=== PATIENT | female | born 1955 | race Hispanic/Latino ===

== ENCOUNTER 2022-12-17 11:23 | Outpatient (CLI) | payer MEDICARE ==
[2022-12-17 13:13] LABS: #Basophils 0.1 10x3/uL (0.0-0.2); #Eosinphils 0.2 10x3/uL (0.0-0.5); #Monocytes 0.5 10x3/uL (0.0-1.1); #Neutrophils 2.7 10x3/uL (1.5-8.4); %Basophils 0.8 % (0.0-2.0); %Eosinophils 3.3 % (0.0-6.0); %Lymphocytes 43.2 % (18.0-47.0); %Monocytes 7.9 % (0.0-10.0); %Neutrophils 44.5 % (40.0-75.0); Hemoglobin 13.4 g/dL (12.0-15.5); Mean Corpuscular HGB CONC 31.8 g/dL (32.0-36.0); Mean Corpuscular Hemoglobin 28.5 pg (27.0-33.0); Mean Corpuscular Volume 89.4 fl (81.6-98.3); Mean Platelet Volume 8.7 fl (7.4-10.4); Platelet Count 328 10x3/uL (150-450); RBC Distribution Width 13.4 % (11.5-14.5); Red Blood Cell (RBC) Count 4.71 10x6/uL (3.90-5.03); White Blood Cell (WBC) Count 6.1 10x3/uL (3.5-10.5)
== END 2022-12-17 11:24 | disposition home or self-care (01) ==
LOC: LABBT 11:23
PROVIDERS: ATTEND Orthopaedic Surgery Hand Surgery
DX: Z01.818 Encounter for other preprocedural examination (principal); G56.02 Carpal tunnel syndrome, left upper limb; M72.0 Palmar fascial fibromatosis [Dupuytren]
CPT/HCPCS: 85025; 93005; 93010

== ENCOUNTER 2022-12-19 06:52 | Inpatient (IN) | payer MEDICARE ==
[2022-12-19] MEDS ORDERED: Vancomycin 1 GM/200 ML (FROZEN) BAG ONE (08:44)
[2022-12-19] MEDS ORDERED: Promethazine HCl 25 MG/ML VIAL ONE (08:48)
[2022-12-19] MEDS ORDERED: ePHEDrine 50 MG/ML VIAL ONE (08:55)
[2022-12-19] MEDS ORDERED: Ondansetron PF 4 MG/2 ML Vial ONE ×2 (08:55)
[2022-12-19] MEDS ORDERED: Lidocaine 1% PF 5 ML VIAL ONE (08:55)
[2022-12-19] MEDS ORDERED: Dexamethasone 20 MG/5 ML VIAL ONE (08:55)
[2022-12-19] MEDS ORDERED: Rocuronium Bromide 10 MG/ML (10ML VIAL) ONE (08:55)
[2022-12-19] MEDS ORDERED: Glycopyrrolate 0.2 MG/ML 5 ML SYRINGE ONE (08:55)
[2022-12-19] MEDS ORDERED: PHENYLEPHRINE-NS 100 MCG/ML 10 ML SYRINGE ONE (08:55)
[2022-12-19] MEDS ORDERED: Ketorolac Tromethamine 30 MG/ML VIAL ONE (08:55)
[2022-12-19] MEDS ORDERED: NEOSTIGMINE 3 MG/3 ML SYR 3 MG/3 ML SYRINGE ONE (08:55)
[2022-12-19] MEDS ORDERED: PROPOFOL 200 MG/20 ML VIAL ONE (08:55)
[2022-12-19] MEDS ORDERED: diphenhydrAMINE 50 MG/ML VIAL ONE (08:55)
[2022-12-19] MEDS ORDERED: Bupivacaine PF 0.5% 30 ML VIAL ONE (09:23)
[2022-12-19] MEDS ORDERED: Betamet Acet/Betamet Na Ph 30 MG/5 ML VIAL ONE (09:23)
[2022-12-19] MEDS ORDERED: Bacitracin Zinc Ointment 30 gm TUBE ONE (09:23)
[2022-12-19] MEDS ORDERED: Hetastarch 6% 500 ML 500 ML ONE ×2 (10:38→16:18)
[2022-12-19] MEDS ORDERED: Papaverine 60 MG/2 ML VIAL ONE ×2 (11:37→13:16)
[2022-12-19] MEDS ORDERED: fentaNYL PF 100 MCG/2 ML SYRINGE ONE ×2 (12:50→16:17)
[2022-12-19] MEDS ORDERED: Heparin 25,000 units/D5W 500 ML ONE (13:06)
[2022-12-19] MEDS ORDERED: Heparin 10,000 UNITS/ 10 ML VIAL ONE (13:06)
[2022-12-19] MEDS ORDERED: HYDROmorphone 2 MG/ML VIAL SLOW IVP PRN (17:51)
[2022-12-19] MEDS ORDERED: Promethazine HCl 25 MG/ML VIAL IM PRN (17:51)
[2022-12-19] MEDS ORDERED: Morphine 4 MG/ML VIAL SLOW IVP PRN (18:02)
[2022-12-19] MEDS ORDERED: Fentanyl 100 MCG/2 ML VIAL SLOW IVP PRN (18:02)
[2022-12-19] MEDS ORDERED: TETANUS, DIPHTHERIA TOX,ADULT (TDVAX) 0.5 ML VIAL IM ONE (18:02)
[2022-12-19] MEDS ORDERED: HYDROcodone/Acetaminophen 5/325 mg Tablet PO PRN (18:02)
[2022-12-19] MEDS ORDERED: Communication Order-Pharmacy FS SCH (18:15)
[2022-12-19 18:16] LABS: #Monocytes 0.1 thou/uL (0.11-0.59); #Neutrophils 3.1 thou/uL (1.40-6.50); %Basophils 0.2 % (0.0-1.0); %Eosinophils 0.2 % (0.0-10.0); %Lymphocytes 23.9 % (21.0-51.0); %Monocytes 1.2 % (0.0-10.0); %Neutrophils 74.5 % (42.0-75.0); Hemoglobin 10.6 g/dL (12.0-16.0); Mean Corpuscular HGB CONC 33.6 g/dL (32.0-36.0); Mean Corpuscular Hemoglobin 30.3 pg (27.0-31.0); Mean Corpuscular Volume 90.3 fl (78.0-98.0); Mean Platelet Volume 6.5 fL (7.4-10.4); Platelet Count 281 10x3/uL (130-400); RBC Distribution Width 12.5 % (11.5-14.5); Red Blood Cell (RBC) Count 3.51 mill/uL (4.20-5.40); White Blood Cell (WBC) Count 4.1 10x3/uL (4.8-10.8)
[2022-12-19] MEDS ORDERED: Heparin 25,000 units/D5W 500 ML IV SCH (18:45)
[2022-12-19] MEDS: Aspirin 81 mg Enteric Coated Tablet PO SCH (20:51)
[2022-12-19 21:46] LABS: #Lymphocytes 1.1 thou/uL (1.20-3.40); #Monocytes 0.1 thou/uL (0.11-0.59); #Neutrophils 7.2 thou/uL (1.40-6.50); %Basophils 0.1 % (0.0-1.0); %Eosinophils 0.1 % (0.0-10.0); %Lymphocytes 13.2 % (21.0-51.0); %Monocytes 1.2 % (0.0-10.0); %Neutrophils 85.5 % (42.0-75.0); Hemoglobin 8.6 g/dL (12.0-16.0); Mean Corpuscular HGB CONC 33.8 g/dL (32.0-36.0); Mean Corpuscular Hemoglobin 30.7 pg (27.0-31.0); Mean Corpuscular Volume 90.8 fl (78.0-98.0); Mean Platelet Volume 6.7 fL (7.4-10.4); Platelet Count 258 10x3/uL (130-400); RBC Distribution Width 12.5 % (11.5-14.5); Red Blood Cell (RBC) Count 2.79 mill/uL (4.20-5.40); White Blood Cell (WBC) Count 8.4 10x3/uL (4.8-10.8)
[2022-12-20 00:02] LABS: Anion Gap 17 mmol/L (10-20); BUN (Urea Nitrogen) 17 mg/dL (9.8-20.1); CK (CPK) 179 U/L (29-168); Calc. Creatinine Clearance 85 mL/min (70-130); Calcium 7.2 mg/dL (7.8-10.44); Carbon Dioxide 16 mmol/L (23-31); Chloride 110 mmol/L (98-107); Estimated GFR 70; Glucose 142 mg/dL (80-115); Potassium 4.5 mmol/L (3.5-5.1); Sodium 138 mmol/L (136-145)
[2022-12-20 00:32] LABS: Troponin I Less than 0.010 ng/mL (< 0.028)
[2022-12-20] MEDS: Acetaminophen/Codeine 30-300mg Tablet PO PRN ×5 (00:40→20:11)
[2022-12-20] MEDS ORDERED: Sodium Chloride 0.9% 1,000 ML IV SCH (01:00)
[2022-12-20 01:18] VITALS: BMI 36.3
[2022-12-20 04:30] LABS: SARS-CoV-2 NAA Rapid Test Not Detected (NotDetected)
[2022-12-20 06:02] LABS: Bilirubin Negative (Negative); Blood, Urine 3+ (Negative); CAUTI Indications for Culture Alt mental st,lethar; Clarity Turbid (Clear); Glucose, Urine (Dipstick) Normal (Negative); Ketone, Urine Negative (Negative); Leukocyte Negative Leu/uL (Negative); Nitrite Negative (Negative); Protein, Urine (Dipstick) Negative (Neg-Trace); RBC/HPF 0-3 HPF (0-3); Specific Gravity, Urine 1.015 (1.002-1.036); Urobilinogen Normal mg/dL (Less than 2); WBC/HPF 0-3 HPF (0-3); pH, Urine 5.5 (5.0-9.0)
[2022-12-20 06:03] LABS: Bacteria/HPF 1+ HPF (None Seen); Urine Culture Reflex No No
[2022-12-20 06:35] LABS: #Lymphocytes 1.6 thou/uL (1.20-3.40); #Monocytes 0.6 thou/uL (0.11-0.59); #Neutrophils 8.4 thou/uL (1.40-6.50); %Basophils 0.1 % (0.0-1.0); %Lymphocytes 15.1 % (21.0-51.0); %Monocytes 5.6 % (0.0-10.0); %Neutrophils 79.3 % (42.0-75.0); Hemoglobin 8.9 g/dL (12.0-16.0); Mean Corpuscular HGB CONC 34.7 g/dL (32.0-36.0); Mean Corpuscular Hemoglobin 31.5 pg (27.0-31.0); Mean Corpuscular Volume 90.6 fl (78.0-98.0); Mean Platelet Volume 6.4 fL (7.4-10.4); Platelet Count 221 10x3/uL (130-400); RBC Distribution Width 12.4 % (11.5-14.5); Red Blood Cell (RBC) Count 2.84 mill/uL (4.20-5.40); White Blood Cell (WBC) Count 10.6 10x3/uL (4.8-10.8)
[2022-12-20] MEDS: Hetastarch 6% 500 ML 500 ML IVPB SCH (08:13)
[2022-12-20] MEDS: Aspirin 81 mg Enteric Coated Tablet PO SCH (08:14)
[2022-12-20] MEDS: Sulfameth/Trimethoprim DS 800-160mg TAB PO SCH ×2 (08:20→20:11)
[2022-12-20] MEDS: traMADol HCl 50 MG TAB PO PRN ×2 (11:07→17:24)
[2022-12-20 15:14] LABS: #Basophils 0.1 thou/uL (0.0-0.2); #Lymphocytes 3.7 thou/uL (1.20-3.40); #Monocytes 0.7 thou/uL (0.11-0.59); #Neutrophils 8.1 thou/uL (1.40-6.50); %Basophils 0.6 % (0.0-1.0); %Eosinophils 0.1 % (0.0-10.0); %Lymphocytes 29.7 % (21.0-51.0); %Monocytes 5.4 % (0.0-10.0); %Neutrophils 64.3 % (42.0-75.0); Hemoglobin 8.9 g/dL (12.0-16.0); Mean Corpuscular HGB CONC 33.4 g/dL (32.0-36.0); Mean Corpuscular Hemoglobin 30.5 pg (27.0-31.0); Mean Corpuscular Volume 91.4 fl (78.0-98.0); Mean Platelet Volume 6.7 fL (7.4-10.4); Platelet Count 247 10x3/uL (130-400); RBC Distribution Width 12.8 % (11.5-14.5); Red Blood Cell (RBC) Count 2.91 mill/uL (4.20-5.40); White Blood Cell (WBC) Count 12.6 10x3/uL (4.8-10.8)
[2022-12-20] MEDS: Clindamycin/D5W 900 MG in Premix Bag 1 BAG IVPB SCH ×2 (15:44→22:48)
[2022-12-20] MEDS ORDERED: Clindamycin (PEDI) 900 MG in Syringe 0 ML IVPB SCH (18:00)
[2022-12-21] MEDS: Acetaminophen 325 MG TAB PO PRN ×4 (00:40→19:57)
[2022-12-21] MEDS: traMADol HCl 50 MG TAB PO PRN ×3 (03:10→21:42)
[2022-12-21] MEDS: Clindamycin/D5W 900 MG in Premix Bag 1 BAG IVPB SCH ×4 (03:11→21:42)
[2022-12-21] MEDS: Hetastarch 6% 500 ML 500 ML IVPB SCH (06:21)
[2022-12-21 06:25] LABS: #Basophils 0.1 thou/uL (0.0-0.2); #Eosinphils 0.1 thou/uL (0.0-0.7); #Monocytes 0.7 thou/uL (0.11-0.59); #Neutrophils 5.3 thou/uL (1.40-6.50); %Basophils 0.5 % (0.0-1.0); %Eosinophils 0.7 % (0.0-10.0); %Lymphocytes 39.7 % (21.0-51.0); %Monocytes 6.7 % (0.0-10.0); %Neutrophils 52.4 % (42.0-75.0); Hemoglobin 7.7 g/dL (12.0-16.0); Mean Corpuscular Hemoglobin 31.3 pg (27.0-31.0); Mean Platelet Volume 6.9 fL (7.4-10.4); Platelet Count 208 10x3/uL (130-400); Red Blood Cell (RBC) Count 2.46 mill/uL (4.20-5.40)
[2022-12-21] MEDS: Aspirin 81 mg Enteric Coated Tablet PO SCH (08:25)
[2022-12-21] MEDS: Sulfameth/Trimethoprim DS 800-160mg TAB PO SCH ×2 (08:25→19:55)
[2022-12-21] MEDS: Senokot S 8.6-50 MG TAB PO SCH ×2 (09:01→19:55)
[2022-12-21] MEDS: Ondansetron PF 4 MG/2 ML Vial SLOW IVP PRN ×2 (09:49→17:08)
[2022-12-21 10:03] LABS: #Eosinphils 0.1 thou/uL (0.0-0.7); #Lymphocytes 3.4 thou/uL (1.20-3.40); #Monocytes 0.6 thou/uL (0.11-0.59); #Neutrophils 4.8 thou/uL (1.40-6.50); %Basophils 0.4 % (0.0-1.0); %Eosinophils 1.7 % (0.0-10.0); %Lymphocytes 38.1 % (21.0-51.0); %Monocytes 6.9 % (0.0-10.0); Hemoglobin 7.7 g/dL (12.0-16.0); Mean Corpuscular Hemoglobin 30.1 pg (27.0-31.0); Mean Corpuscular Volume 91.4 fl (78.0-98.0); Mean Platelet Volume 7.1 fL (7.4-10.4); Platelet Count 219 10x3/uL (130-400); RBC Distribution Width 12.8 % (11.5-14.5); Red Blood Cell (RBC) Count 2.54 mill/uL (4.20-5.40)
[2022-12-21 11:31] LABS: #Basophils 0.1 thou/uL (0.0-0.2); #Eosinphils 0.2 thou/uL (0.0-0.7); #Lymphocytes 2.7 thou/uL (1.20-3.40); #Monocytes 0.5 thou/uL (0.11-0.59); #Neutrophils 4.6 thou/uL (1.40-6.50); %Basophils 0.7 % (0.0-1.0); %Eosinophils 2.1 % (0.0-10.0); %Lymphocytes 33.5 % (21.0-51.0); %Monocytes 6.4 % (0.0-10.0); %Neutrophils 57.2 % (42.0-75.0); Hemoglobin 7.6 g/dL (12.0-16.0); Mean Corpuscular HGB CONC 34.1 g/dL (32.0-36.0); Mean Corpuscular Hemoglobin 31.1 pg (27.0-31.0); Mean Corpuscular Volume 91.2 fl (78.0-98.0); Mean Platelet Volume 7.1 fL (7.4-10.4); Platelet Count 192 10x3/uL (130-400); RBC Distribution Width 12.8 % (11.5-14.5); Red Blood Cell (RBC) Count 2.44 mill/uL (4.20-5.40); White Blood Cell (WBC) Count 8.1 10x3/uL (4.8-10.8)
[2022-12-21 18:30] LABS: #Eosinphils 0.2 thou/uL (0.0-0.7); #Lymphocytes 2.7 thou/uL (1.20-3.40); #Monocytes 0.6 thou/uL (0.11-0.59); #Neutrophils 4.2 thou/uL (1.40-6.50); %Basophils 0.6 % (0.0-1.0); %Eosinophils 2.8 % (0.0-10.0); %Lymphocytes 34.7 % (21.0-51.0); %Monocytes 8.1 % (0.0-10.0); %Neutrophils 53.8 % (42.0-75.0); Hemoglobin 9.2 g/dL (12.0-16.0); Mean Corpuscular HGB CONC 34.3 g/dL (32.0-36.0); Mean Corpuscular Hemoglobin 31.8 pg (27.0-31.0); Mean Corpuscular Volume 92.7 fl (78.0-98.0); Mean Platelet Volume 7.3 fL (7.4-10.4); Platelet Count 180 10x3/uL (130-400); RBC Distribution Width 12.9 % (11.5-14.5); Red Blood Cell (RBC) Count 2.88 mill/uL (4.20-5.40); White Blood Cell (WBC) Count 7.9 10x3/uL (4.8-10.8)
[2022-12-22] MEDS: Acetaminophen 325 MG TAB PO PRN ×2 (01:36→08:53)
[2022-12-22] MEDS: Clindamycin/D5W 900 MG in Premix Bag 1 BAG IVPB SCH ×3 (03:34→19:24)
[2022-12-22] MEDS: traMADol HCl 50 MG TAB PO PRN ×2 (05:42→11:19)
[2022-12-22] MEDS: Aspirin 81 mg Enteric Coated Tablet PO SCH (08:50)
[2022-12-22] MEDS: Sulfameth/Trimethoprim DS 800-160mg TAB PO SCH (08:50)
[2022-12-22] MEDS ORDERED: Electrolyte Replacement Protocol 1 EACH FS SCH (09:15)
[2022-12-22] MEDS: Senokot S 8.6-50 MG TAB PO SCH ×2 (09:17→14:04)
[2022-12-22] MEDS ORDERED: Electrolyte Replacement Protocol FS PRN (10:00)
[2022-12-22 10:30] LABS: #Basophils 0.1 thou/uL (0.0-0.2); #Eosinphils 0.2 thou/uL (0.0-0.7); #Lymphocytes 2.1 thou/uL (1.20-3.40); #Monocytes 0.4 thou/uL (0.11-0.59); #Neutrophils 3.7 thou/uL (1.40-6.50); %Basophils 0.8 % (0.0-1.0); %Lymphocytes 32.2 % (21.0-51.0); %Monocytes 6.7 % (0.0-10.0); %Neutrophils 57.3 % (42.0-75.0); Hemoglobin 9.3 g/dL (12.0-16.0); Mean Corpuscular HGB CONC 33.3 g/dL (32.0-36.0); Mean Corpuscular Hemoglobin 30.6 pg (27.0-31.0); Mean Corpuscular Volume 91.9 fl (78.0-98.0); Mean Platelet Volume 6.8 fL (7.4-10.4); Platelet Count 226 10x3/uL (130-400); RBC Distribution Width 12.9 % (11.5-14.5); Red Blood Cell (RBC) Count 3.05 mill/uL (4.20-5.40); White Blood Cell (WBC) Count 6.4 10x3/uL (4.8-10.8)
[2022-12-22 10:56] LABS: Anion Gap 11 mmol/L (10-20); BUN (Urea Nitrogen) 9 mg/dL (9.8-20.1); Calc. Creatinine Clearance 100 mL/min (70-130); Calcium 7.5 mg/dL (7.8-10.44); Carbon Dioxide 23 mmol/L (23-31); Chloride 106 mmol/L (98-107); Estimated GFR 77; Glucose 114 mg/dL (80-115); Magnesium 1.5 mg/dL (1.6-2.6); Potassium 3.6 mmol/L (3.5-5.1); Sodium 136 mmol/L (136-145)
[2022-12-22] MEDS ORDERED: Magnesium 2 GM/50 ML(in water) 2 GM in Premix Bag 1 BAG IVPB SCH (13:00)
[2022-12-22 13:11] VITALS: TEMP 98.3
[2022-12-22] MEDS ORDERED: TETANUS, DIPHTHERIA TOX,ADULT (TDVAX) 0.5 ML VIAL IM ONE (14:05)
[2022-12-22] MEDS ORDERED: Milk Of Magnesia 30 ML UDCUP PO PRN (14:05)
[2022-12-22] MEDS ORDERED: Bisacodyl 10 MG SUPP PR PRN (14:07)
[2022-12-22] MEDS ORDERED: Communication Order-Pharmacy FS SCH (14:15)
[2022-12-22] MEDS: Ondansetron PF 4 MG/2 ML Vial SLOW IVP PRN (14:53)
[2022-12-22 17:47] VITALS: BP 149/77
[2022-12-22] MEDS ORDERED: Atorvastatin Calcium 10 MG TAB PO SCH (21:00)
[2022-12-22] MEDS ORDERED: Aspirin 81 mg Enteric Coated Tablet PO SCH (21:00)
== END 2022-12-22 19:26 | disposition home or self-care (01) | DRG 41 ==
LOC: SDC 06:52 → SURG A 18:02
PROVIDERS: ADMIT Orthopaedic Surgery Hand Surgery; ATTEND Orthopaedic Surgery Hand Surgery
PROC: 01N50ZZ Release Median Nerve, Open Approach (ICD-10-PCS; principal; 2022-12-19)
PROC: 0JNK0ZZ Release Left Hand Subcutaneous Tissue and Fascia, Open Approach (ICD-10-PCS; 2022-12-19)
PROC: 30233N1 Transfusion of Nonautologous Red Blood Cells into Peripheral Vein, Percutaneous Approach (ICD-10-PCS; 2022-12-20)
DX: G56.02 Carpal tunnel syndrome, left upper limb (principal); F33.9 Major depressive disorder, recurrent, unspecified; G93.40 Encephalopathy, unspecified; M72.0 Palmar fascial fibromatosis [Dupuytren]; E78.2 Mixed hyperlipidemia; I95.81 Postprocedural hypotension; E83.42 Hypomagnesemia; E66.9 Obesity, unspecified; Z20.822 Contact with and (suspected) exposure to COVID-19; Z90.710 Acquired absence of both cervix and uterus; Z90.49 Acquired absence of other specified parts of digestive tract; Z68.36 Body mass index [BMI] 36.0-36.9, adult; Z98.890 Other specified postprocedural states; Z88.0 Allergy status to penicillin; Z88.8 Allergy status to other drugs, medicaments and biological substances; Z79.899 Other long term (current) drug therapy
CPT/HCPCS: 36415; 36416; 36430; 70551; 80048; 81001; 82550; 82553; 83735; 83880; 84146; 84443; 84484; 85025; 85379; 86850; 86900; 86901; 88304; 93005; 93010; 93306; 95712; 95819; 95957; J0702; J1100; J1200; J1642; J1644; J1885; J2270; J2405; J2440; J2550; J2704; J3370-JW; J3475; J3490; J7050; P9016; S0020; U0002

== ENCOUNTER 2024-08-11 14:53 | Outpatient (CLI) | payer MEDICARE ==
[2024-08-11 16:42] LABS: #Basophils 0.03 10x3/uL (0.0-0.2); %Basophils 0.5 % (0.0-1.0); %Eosinophils 3.8 % (0.0-10.0); %Lymphocytes 48.1 % (21.0-51.0); %Monocytes 9.3 % (0.0-10.0); %Neutrophils 38.1 % (42.0-75.0); Hemoglobin 13.4 g/dL (12.0-16.0); Mean Corpuscular HGB CONC 32.7 g/dL (32.0-36.0); Mean Corpuscular Hemoglobin 29.3 pg (27.0-31.0); Mean Corpuscular Volume 89.7 fL (78.0-98.0); Platelet Count 311 10x3/uL (130-400); RBC Distribution Width 13.4 % (11.5-14.5); Red Blood Cell (RBC) Count 4.57 mill/uL (4.20-5.40)
== END 2024-08-11 14:54 | disposition home or self-care (01) ==
LOC: LABBT 14:53
PROVIDERS: ATTEND Orthopaedic Surgery Hand Surgery
DX: Z01.818 Encounter for other preprocedural examination (principal); M72.0 Palmar fascial fibromatosis [Dupuytren]
CPT/HCPCS: 85025; 93005; 93010